=== PATIENT | male | born 1980 | race Caucasian/White ===

== ENCOUNTER 2016-12-11 23:38 | Emergency (ER) | payer OTHER ==
--- NOTE | 2016-12-12 00:16 | PDOC ---
History of Present Illness - General History Source: Patient Exam Limitations: No Limitations - History of Present Illness Initial Comments: 12/12/16 00:39 The patient is a 36 year old male brought via EMS, with a significant past medical history of alcohol and crack abuse, who presents to the emergency department because he wants alcohol and crack detox. He reports that his last drink was at 4pm today and his last crack use was last night. He also reports that he went to [facility] detox today. He has no other complaints other than he does not have the financial resources to go anywhere tonight. The patient denies chest pain, shortness of breath, headache and dizziness. Denies fever, chills, nausea, vomit, diarrhea and constipation. Denies dysuria, frequency, urgency and hematuria. Allergies: None Past surgical history: None reported Social history: Alcohol abuse, crack use. <Ankit Catalan - Last Filed: 12/12/16 00:39> <Humza Nichole - Last Filed: 12/12/16 02:15> - General Stated Complaint: INTOX Time Seen by Provider: 12/12/16 00:16 Past History <Ankit Catalan - Last Filed: 12/12/16 00:39> - Past Medical History Asthma: Yes (ON ALBUTEROL INJ=HALER) Cancer: No Cardiac Disorders: No CVA: No COPD: No CHF: No Dementia: No Diabetes: No GI Disorders: No Disorders: No HTN: No Hypercholesterolemia: No Kidney Stones: No Liver Disease: No Suicide Attempt (Hx): No Seizures: No Thyroid Disease: No - Surgical History Abdominal Surgery: No Appendectomy: No Cardiac Surgery: No Cholecystectomy: No Lung Surgery: No Neurologic Surgery: No Orthopedic Surgery: No - Reproductive History Testicular Surgery: No - Psycho/Social/Smoking Cessation Hx Anxiety: No Suicidal Ideation: No Smoking History: Current every day smoker Have you smoked in the past 12 months: Yes Number of Cigarettes Smoked Daily: 40 'Breaking Loose' booklet given: 04/17/15 Hx Alcohol Use: Yes Drug/Substance Use Hx: Yes Substance Use Type: Alcohol, Cocaine Hx Substance Use Treatment: No <Humza Nichole - Last Filed: 12/12/16 02:15> - Past Medical History Allergies/Adverse Reactions: Allergies Allergy/AdvReac Type Severity Reaction Status Date / Time No Known Allergies Allergy Verified 12/12/16 00:16 Home Medications: Ambulatory Orders Albuterol Sulfate Inhaler - [Ventolin Hfa Inhaler -] 1 - 2 inh PO QID 04/17/15 Fluoxetine HCl [Prozac -] 60 mg PO DAILY 12/11/16 Quetiapine Fumarate [Seroquel] 100 mg PO HS 12/11/16 Review of Systems - Review of Systems Able to Perform ROS?: Yes Comments:: 12/12/16 00:39 CONSTITUTIONAL: No fever, no chills, no fatigue EYES: No visual changes ENT: No ear pain, no sore throat CARDIOVASCULAR: No chest pain, no palpitations RESPIRATORY: No cough, no SOB GI: No abdominal pain, no nausea, no vomiting, no constipation, no diarrhea GENITOURINARY: No dysuria, no frequency, no hematuria MUSKULOSKELETAL: No backpain, no joint pain, no myalgias SKIN: No rash NEURO: No headache <Ankit Catalan - Last Filed: 12/12/16 00:39> *Physical Exam - Vital Signs Last Vital Signs Temp Pulse Resp BP Pulse Ox 98.5 F 85 14 130/58 98 12/12/16 00:16 12/12/16 00:16 12/12/16 00:16 12/12/16 00:16 12/12/16 00:16 - Physical Exam Comments: 12/12/16 00:39 CONSTITUTIONAL: Well-appearing; well-nourished; in no apparent distress HEAD: Normocephalic; atraumatic EYES: PERRL; EOM intact ENMT: External appears normal; normal oropharynx NECK: Supple; non-tender; no cervical lymphadenopathy CARD: Normal S1, S2; no murmurs, rubs, or gallops RESP: Normal chest excursion with respiration; breath sounds clear and equal bilaterally; no wheezes, rhonchi, or rales ABD: Soft, non-distended; non-tender; no palpable organomegaly, no palpable hernias EXT: Normal ROM in all four extremities; non-tender to palpation; distal pulses intact SKIN: Warm, dry, no rash NEURO: No focal neurological deficiencies. <Ankit Catalan - Last Filed: 12/12/16 00:39> Medical Decision Making - Medical Decision Making 12/12/16 02:13 Patient is a 36-year-old male with history of alcohol and crack cocaine abuse who is brought in by EMS from [facility] detox for patient was seeking inpatient detox. Patient was refused admission at [facility] due to the fact that his insurance was not accepted. In the ER, patient is asymptomatic and wishes to sleep. Physical exam and vital signs are noted to be normal. Will discharge with recommendation to follow-up at other outpatient institutions for detox. <Humza Nichole - Last Filed: 12/12/16 02:15> *DC/Admit/Observation/Transfer - Attestations Scribe Attestion: 12/12/16 00:39 Documentation prepared by Ankit Catalan, acting as medical staff credentialing coordinator for Humza Nichole MD <Ankit Catalan - Last Filed: 12/12/16 00:39> - Attestations Physician Attestion: 12/12/16 02:12 The documentation was prepared by the scribe under my direct supervision. I have reviewed the documentation which correctly represents the findings, medical decision-making and critical action taken by me. <Humza Nichole - Last Filed: 12/12/16 02:15> Diagnosis at time of Disposition: Alcohol dependence with uncomplicated intoxication Cocaine dependence Qualifiers: Substance use status: uncomplicated Qualified Code(s): F14.20 - Cocaine dependence, uncomplicated - Discharge Dispostion Disposition: HOME Condition at time of disposition: Stable - Referrals Referrals: Gavin Barr MD [Primary Care Provider] - - Patient Instructions Printed Discharge Instructions: DI for Alcohol Abuse
[2016-12-12 00:24] VITALS: BP 130/58; PULSE 85; TEMP 98.5; BMI 28.7
== END 2016-12-12 06:39 | disposition home or self-care (01) ==
LOC: JER 23:38
DX: F10.229 Alcohol dependence with intoxication, unspecified (principal); F10.20 Alcohol dependence, uncomplicated
CPT/HCPCS: 99281-25